=== PATIENT | male | born 1955 | race Caucasian/White ===

== ENCOUNTER 2017-10-19 10:24 | Day surgery (SDC) | payer BC ==
[~2017-10-19 10:24] MED LIST: Lactated Ringers 1,000 ML IV SCH
--- NOTE | 2017-10-19 11:26 | PCM.PREANE ---
Preanesthetic Assessment - Anesthesia/Transfusion/Family Hx Anesthesia History: Prior Anesthesia Without Reaction Family History of Anesthesia Reaction: No Transfusion History: No Prior Transfusion(s) - Review of Systems General: No Symptoms Pulmonary: No Symptoms Cardiovascular: No Symptoms Gastrointestinal: No Symptoms Neurological: No Symptoms Other: Reports: None - Physical Assessment NPO Status Date: 10/18/17 NPO Status Time: 21:00 O2 Sat by Pulse Oximetry: 97 Respiratory Rate: 16 Vital Signs: Last Vital Signs Temp 36.2 C 10/19/17 10:37 Pulse 60 10/19/17 10:37 Resp 16 10/19/17 10:37 BP 128/81 10/19/17 10:37 Pulse Ox 97 10/19/17 10:37 Height: 1.7 m Weight: 99.337 kg ASA Class: 2 Mental Status: Alert & Oriented x3 Airway Class: Mallampati = 2 Dentition: Reports: [place](s) ROM/Head Extension: Full Lungs: Clear to Auscultation, Normal Respiratory Effort Cardiovascular: Regular Rate, Regular Rhythm - Allergies Allergies/Adverse Reactions: Allergies Allergy/AdvReac Type Severity Reaction Status Date / Time No Known Allergies Allergy Verified 10/16/17 10:32 - Anesthesia Plan Pre-Op Medication Ordered: None - Acknowledgements Anesthesia Type Planned: MAC Pt an Appropriate Candidate for the Planned Anesthesia: Yes Alternatives and Risks of Anesthesia Discussed w Pt/Guardian: Yes Pt/Guardian Understands and Agrees with Anesthesia Plan: Yes PreAnesthesia Questionnaire Gastrointestinal History: Reports: GERD Endocrine/Metabolic History: Reports: Obesity/BMI 30+ - Past Surgical History Head Surgeries/Procedures: Reports: None GI Surgical History: Reports: Colonoscopy, EGD - SUBSTANCE USE Smoking Status *Q: Light Tobacco Smoker Days Per Week of Alcohol Use: 7 Number of Drinks Per Day: 3 Total Drinks Per Week: 21 Recreational Drug Use History: No - HOME MEDS Home Medications: Home Meds Aspirin [[place] Aspirin] 81 mg PO DAILY 09/14/14 [History] Omeprazole Magnesium [Prilosec Otc] 1 tab PO ASDIRECTED PRN 10/16/17 [History] - CURRENT (IN HOUSE) MEDS Current Meds: Current Medications Lactated Ringer's (Ringers, Lactated) 1,000 mls @ 125 mls/hr IV ASDIRECTED [facility] Last Admin: 10/19/17 10:38 Dose: 125 mls/hr
[2017-10-19] MEDS ORDERED: Lidocaine 2% 5 ML SDV ONE (11:48)
[2017-10-19] MEDS ORDERED: fentaNYL 100 MCG/2 ML SDV ONE (11:49)
[2017-10-19] MEDS ORDERED: Propofol 200 MG/20 ML SDV ONE ×2 (11:49→12:33)
[2017-10-19] MEDS ORDERED: Midazolam 1 MG/ML 2 ML SDV ONE (11:49)
--- NOTE | 2017-10-19 12:13 | PCM.OPNOTE ---
- General Post-Op/Procedure Note Date of Surgery/Procedure: 10/19/17 Operative Procedure(s): Colonoscopy Pre Op Diagnosis: Intermittent rectal bleeding Post-Op Diagnosis: Internal hemorrhoids Anesthesia Technique: MAC (ASA II) Primary Surgeon: Marin Harman Condition: Good Free Text/Narrative:: Dictation [id number] CPT CODE [id number]
[2017-10-19] MEDS ORDERED: Lactated Ringers 1,000 ML IV SCH ×2 (12:15→13:15)
--- NOTE | 2017-10-19 13:11 | PCM.OPNOTE ---
- General Post-Op/Procedure Note Date of Surgery/Procedure: 10/19/17 Operative Procedure(s): Esophagogastroduodenoscopy with biopsy. Colonoscopy. Pre Op Diagnosis: History of Darby's esophagus. Change in bowel habits. Post-Op Diagnosis: Duodenitis. Gastritis with gastric polyps. Darby's esophagus. Severe sigmoid diverticulosis. Primary Surgeon: Marin Harman Condition: Good Free Text/Narrative:: Dictation [id number] CPT CODE [id number]
--- NOTE | 2017-10-19 13:17 | PCM.POSTAN ---
POST ANESTHESIA ASSESSMENT - MENTAL STATUS Mental Status: Alert, Oriented - RESPIRATORY Respiratory Status: Respiratory Rate WNL, Airway Patent, O2 Saturation Stable - CARDIOVASCULAR CV Status: Pulse Rate WNL, Blood Pressure Stable - GASTROINTESTINAL GI Status: No Symptoms - POST OP HYDRATION Hydration Status: Adequate & Stable
--- NOTE | 2017-10-19 13:23 | PCM48HPAN ---
Post Anesthesia Note - EVALUATION WITHIN 48HRS OF ANESTHETIC Vital Signs in Normal Range: Yes Patient Participated in Evaluation: Yes Respiratory Function Stable: Yes Airway Patent: Yes Cardiovascular Function Stable: Yes Hydration Status Stable: Yes Pain Control Satisfactory: Yes Nausea and Vomiting Control Satisfactory: Yes Mental Status Recovered: Yes
--- NOTE | 2017-10-22 16:06 | OR ---
SURGEON: Marin Harman M.D. DATE OF PROCEDURE: 10/19/2017 OPERATION PERFORMED: Esophagogastroduodenoscopy with duodenal, gastric and esophageal biopsies. ANESTHESIA: MAC. ASA CLASSIFICATION: II. PREOPERATIVE DIAGNOSIS: Personal history of Darby's esophagus. POSTOPERATIVE DIAGNOSES: 1. Duodenitis. 2. Gastritis. 3. Gastric polyps. 4. Darby's esophagus. DESCRIPTION OF PROCEDURE: The patient was taken to the endoscopy room and positioned on the endoscopy table in the supine position. Time-out was called for appropriate identification of the patient and procedure. Monitored anesthesia care was provided. A bite block was placed between the patient's teeth. The gastroscope was then inserted through the bite block, into the oropharynx and advanced without difficulty into the esophagus, subsequently through the stomach into the duodenum where examination was now carried out in a retrograde fashion. The duodenum does show acute duodenitis and biopsies of this area were taken. The scope was then withdrawn to the stomach which does show [id number] gastritis. Antral biopsies were obtained to look for the presence of Helicobacter pylori. The gastroscope was retroflexed to visualize the proximal stomach, where a number of gastric polyps were identified. Separate biopsies of the gastric polyps were obtained. The gastroscope was then straightened and slowly withdrawn carefully visualizing the greater and lesser curvatures. The stomach was then aspirated. The distal esophagus does show changes suggestive of a Darby's esophagus and separate biopsies of this area were taken. The mid and proximal esophagus showed no acute inflammatory changes and it appeared to have healthy appearing epithelium. Visualizing the vocal cords briefly as the scope was withdrawn. Vocal cords were noted to move symmetrically. The gastroscope was then removed with the patient having tolerated this portion of the procedure well. Following colonoscopy, he was taken to recovery room in stable condition. BARBARA / KIM /[id number] POP
--- NOTE | 2017-10-22 16:09 | OR ---
SURGEON: Marin Harman M.D. DATE OF PROCEDURE: 10/19/2017 OPERATION PERFORMED: Colonoscopy. ANESTHESIA: MAC. ASA CLASSIFICATION: II. PREOPERATIVE DIAGNOSIS: Change in bowel habits. POSTOPERATIVE DIAGNOSIS: Severe sigmoid diverticulosis. DESCRIPTION OF PROCEDURE: With the patient having completed esophagogastroduodenoscopy with biopsy, he was now positioned in the left lateral decubitus position. The colonoscope was inserted into the rectum and advanced with moderate difficulty to the cecum where the colonoscope was retroflexed to visualize the ascending colon from below. The colonoscope was then straightened and slowly withdrawn. The cecum, ascending colon, hepatic flexure, transverse colon, splenic flexure, and descending colon showed no tumors, polyps, diverticula, or angiodysplastic changes. The sigmoid colon demonstrates severe diverticular change. No stricture, spasm, or bleeding was noted. Once the colonoscope was withdrawn through the sigmoid colon into the rectum, it was retroflexed to visualize the anal orifice from above. Again, no tumors or polyps were seen, and there were no acute hemorrhoidal changes. The colonoscope was then straightened, the rectum aspirated, and the colonoscope removed. The patient tolerated the procedure well and was taken to recovery room in stable condition. BARBARA / KIM /[id number]
== END 2017-10-19 13:45 | disposition home or self-care (01) ==
LOC: MW.SDS 10:24
PROVIDERS: ATTEND Surgery
DX: K57.30 Diverticulosis of large intestine without perforation or abscess without bleeding (principal); K29.80 Duodenitis without bleeding; K29.70 Gastritis, unspecified, without bleeding; K22.70 Barrett's esophagus without dysplasia; K31.7 Polyp of stomach and duodenum; F17.200 Nicotine dependence, unspecified, uncomplicated; E66.9 Obesity, unspecified; Z68.34 Body mass index [BMI] 34.0-34.9, adult; Z79.82 Long term (current) use of aspirin; Z79.899 Other long term (current) drug therapy; Z98.890 Other specified postprocedural states
CPT/HCPCS: 43239; 45378; J2250; J3010; J7120; 88305; 88312; J2704

== ENCOUNTER 2019-11-03 07:43 | Day surgery (SDC) | payer BC ==
--- NOTE | 2019-11-03 08:21 | PCM.PREANE ---
Preanesthetic Assessment - Anesthesia/Transfusion/Family Hx Anesthesia History: Prior Anesthesia Without Reaction Family History of Anesthesia Reaction: No Transfusion History: No Prior Transfusion(s) Intubation History: Unknown - Review of Systems General: No Symptoms Pulmonary: No Symptoms Cardiovascular: No Symptoms Gastrointestinal: No Symptoms, Other (EGD recall due to adverse biopsy result) Neurological: No Symptoms Other: Reports: None - Physical Assessment Height: 5 ft 7 in Weight: 99.337 kg ASA Class: 2 Mental Status: Alert & Oriented x3 Airway Class: Mallampati = 2 Dentition: Reports: Normal Dentition Thyro-Mental Finger Breadths: 3 Mouth Opening Finger Breadths: 2 ROM/Head Extension: Limited/Partial Lungs: Clear to Auscultation, Normal Respiratory Effort Cardiovascular: Regular Rate, Regular Rhythm - Allergies Allergies/Adverse Reactions: Allergies Allergy/AdvReac Type Severity Reaction Status Date / Time No Known Allergies Allergy Verified 11/03/19 08:14 - Blood Blood Available: No - Anesthesia Plan Pre-Op Medication Ordered: None - Acknowledgements Anesthesia Type Planned: MAC Pt an Appropriate Candidate for the Planned Anesthesia: Yes Alternatives and Risks of Anesthesia Discussed w Pt/Guardian: Yes Pt/Guardian Understands and Agrees with Anesthesia Plan: Yes PreAnesthesia Questionnaire HEENT History: Reports: Allergic Rhinitis Cardiovascular History: Reports: None Respiratory History: Reports: None Gastrointestinal History: Reports: Diverticulosis, GERD Other Gastrointestinal History: barretts esophagus Genitourinary History: Reports: None Musculoskeletal History: Reports: Arthritis Neurological History: Reports: None Psychiatric History: Reports: None Endocrine/Metabolic History: Reports: Obesity/BMI 30+ Hematologic History: Reports: None Immunologic History: Reports: None Oncologic (Cancer) History: Reports: None Dermatologic History: Reports: None - Past Surgical History Head Surgeries/Procedures: Reports: None HEENT Surgical History: Reports: None Cardiovascular Surgical History: Reports: None Respiratory Surgical History: Reports: None GI Surgical History: Reports: Colonoscopy, EGD Male Surgical History: Reports: None Endocrine Surgical History: Reports: None Neurological Surgical History: Reports: None Musculoskeletal Surgical History: Reports: None Oncologic Surgical History: Reports: None Dermatological Surgical History: Reports: None - SUBSTANCE USE Smoking Status *Q: Former Smoker Tobacco Use Within Last Twelve Months: No Days Per Week of Alcohol Use: 7 Number of Drinks Per Day: 2 Total Drinks Per Week: 14 Recreational Drug Use History: No - HOME MEDS Home Medications: Home Meds Aspirin [[place] Aspirin EC] 81 mg PO DAILY 09/14/14 [History] Omeprazole Magnesium [Prilosec Otc] 1 tab PO ASDIRECTED PRN 10/16/17 [History] - CURRENT (IN HOUSE) MEDS Current Meds: Current Medications Lactated Ringer's (Ringers, Lactated) 1,000 mls @ 125 mls/hr IV ASDIRECTED [facility] Last Admin: 11/03/19 08:14 Dose: 125 mls/hr
[2019-11-03] MEDS ORDERED: fentaNYL 100 MCG/2 ML SDV ONE (09:44)
[2019-11-03] MEDS ORDERED: Propofol 200 MG/20 ML SDV ONE (09:44)
[2019-11-03] MEDS ORDERED: Lactated Ringers 1,000 ML IV SCH (11:15)
--- NOTE | 2019-11-03 11:15 | PCM.OPNOTE ---
- General Post-Op/Procedure Note Date of Surgery/Procedure: 11/03/19 Operative Procedure(s): Esophagogastroduodenoscopy with duodenal, gastric and esophageal biopsies Pre Op Diagnosis: History of Darby's esophagus Post-Op Diagnosis: Duodenitis. Gastritis. Esophagitis. Anesthesia Technique: MAC (ASA II) Primary Surgeon: Marin Harman Condition: Good Free Text/Narrative:: DICTATION [id number] CPT CODE [id number]
--- NOTE | 2019-11-03 11:32 | PCM.POSTAN ---
POST ANESTHESIA ASSESSMENT - MENTAL STATUS Mental Status: Alert - VITAL SIGNS Vital Signs: Last Vital Signs Temp 36.2 C 11/03/19 11:08 Pulse 69 11/03/19 11:18 Resp 16 11/03/19 11:18 BP 117/69 11/03/19 11:18 Pulse Ox 93 L 11/03/19 11:18 - RESPIRATORY Respiratory Status: Respiratory Rate WNL, Airway Patent, O2 Saturation Stable - CARDIOVASCULAR CV Status: Pulse Rate WNL, Blood Pressure Stable - GASTROINTESTINAL GI Status: No Symptoms - POST OP HYDRATION Hydration Status: Adequate & Stable (There were no apparent anesthetic complications at this time. Discharge to Phase 2)
--- NOTE | 2019-11-03 11:34 | PCM48HPAN ---
Post Anesthesia Note - EVALUATION WITHIN 48HRS OF ANESTHETIC Vital Signs in Normal Range: Yes Patient Participated in Evaluation: Yes Respiratory Function Stable: Yes Airway Patent: Yes Cardiovascular Function Stable: Yes Hydration Status Stable: Yes Pain Control Satisfactory: Yes Nausea and Vomiting Control Satisfactory: Yes Mental Status Recovered: Yes Vital Signs: Last Vital Signs Temp 36.2 C 11/03/19 11:08 Pulse 69 11/03/19 11:18 Resp 16 11/03/19 11:18 BP 117/69 11/03/19 11:18 Pulse Ox 93 L 11/03/19 11:18 - COMMENTS/OBSERVATIONS Free Text/Narrative:: The patient has no concerns at this time. Discharge home per criteria.
--- NOTE | 2019-11-04 08:38 | OR ---
SURGEON: Marin Harman M.D. DATE OF PROCEDURE: 11/03/2019 OPERATION PERFORMED: Esophagogastroduodenoscopy with duodenal, gastric, and esophageal biopsies. PRIMARY SURGEON: Marin Harman MD. ANESTHESIA: MAC. ASA CLASSIFICATION: II. PREOPERATIVE DIAGNOSIS: Personal history of Darby esophagus. POSTOPERATIVE DIAGNOSES: 1. Duodenitis. 2. Gastritis. 3. Distal esophagitis. DESCRIPTION OF PROCEDURE: The patient was taken to the endoscopy room, positioned on the endoscopy table in the supine position. Time-out was called for appropriate identification of the patient and procedure. Monitored anesthesia care was provided. The bite block was placed between the patient's teeth. The gastroscope was inserted through the bite block and advanced without difficulty through the esophagus and stomach into the duodenum where examination was now carried out in a retrograde fashion. The duodenum did show some acute inflammatory changes. No ulcerations were noted. Biopsies of the duodenum were obtained. The gastroscope was then withdrawn into the stomach which did show [id number] gastritis. Antral biopsies were obtained to look for the presence of Helicobacter pylori. The gastroscope was then retroflexed to visualize the proximal stomach. No tumors or polyps were seen proximally. No significant hiatal hernia was noted. The gastroscope was then straightened and slowly withdrawn. The GE junction was well visualized and did show some [id number] inflammatory changes. Biopsies of the distal esophagus at approximately 38 cm were obtained. The esophagus itself demonstrated good contractility. No mid or proximal lesions were identified. The vocal cords were visualized as the scope was withdrawn and noted to move symmetrically. No vocal cord lesions were identified. The gastroscope was then removed with the patient having tolerated the procedure well. He was taken to recovery room in stable condition. BARBAAR / KIM /[id number]
== END 2019-11-03 11:37 | disposition home or self-care (01) ==
LOC: MW.SDS 07:43
PROVIDERS: ATTEND Surgery
DX: K29.50 Unspecified chronic gastritis without bleeding (principal); K29.80 Duodenitis without bleeding; K22.70 Barrett's esophagus without dysplasia; K21.0 Gastro-esophageal reflux disease with esophagitis; M19.90 Unspecified osteoarthritis, unspecified site; E66.9 Obesity, unspecified; Z68.34 Body mass index [BMI] 34.0-34.9, adult; Z87.891 Personal history of nicotine dependence; Z79.82 Long term (current) use of aspirin; Z79.899 Other long term (current) drug therapy
CPT/HCPCS: 43239; J2001; J2704; J3010; J7120; 88305; 88312